=== PATIENT | male | born 1960 | race Two or more races ===

== ENCOUNTER → 2017-11-07 10:07 | Outpatient (CLI) | payer OTHER | END | disposition home or self-care (01) | LOC: LAB 10:07 | DX: M54.5 Low back pain (principal) ==

== ENCOUNTER 2018-02-27 13:45 | Outpatient (CLI) | payer OTHER ==
[2018-02-27] MEDS ORDERED: COZAAR100 MG PO (14:19)
[2018-02-27] MEDS ORDERED: TRAMADOL HCL50 MG PO (14:19)
== END 2018-02-27 13:56 | disposition home or self-care (01) ==
LOC: RAD 13:45
DX: M99.53 Intervertebral disc stenosis of neural canal of lumbar region (principal)

== ENCOUNTER 2018-04-05 08:30 | Day surgery (SDC) | payer OTHER ==
[~2018-04-05 08:30] MED LIST: COZAAR100 MG PO; TRAMADOL HCL50 MG PO
== END 2018-04-05 14:35 | disposition home or self-care (01) ==
LOC: CIR.AMB 08:30
DX: M51.16 Intervertebral disc disorders with radiculopathy, lumbar region (principal)